=== PATIENT | female | born 1975 | race Two or more races ===

== ENCOUNTER 2018-08-03 09:47 | Emergency (ER) | payer OTHER ==
[~2018-08-03] VITALS: Ht 157.5 cm; Wt 93.0 kg
[~2018-08-03 09:47] MED LIST: ADT ROBITUSSIN; BUDEPRION SR150 MG; CARBAMAZEPINE200 M3; CLONAZEPAM1 MG; DICLOFENAC SODI50 MG; NABUMETONE750 MG; NAPROXEN500 MG; RESTORIL30 M1; RISPERDAL0.5 MG
== END 2018-08-03 20:31 | disposition home or self-care (01) ==
LOC: ER 09:47
DX: K52.89 Other specified noninfective gastroenteritis and colitis (principal)